=== PATIENT | male | born 1995 | race Caucasian/White ===

== ENCOUNTER 2021-04-23 22:04 | Emergency (ER) | payer BC, OTHER ==
--- NOTE | 2021-04-23 23:06 | ED ---
General Adult HPI - General Chief complaint: Recheck/Abnormal Lab/Rx Stated complaint: Cellulitis on face Time Seen by Provider: 04/23/21 22:28 Source: patient Mode of arrival: ambulatory Limitations: no limitations - History of Present Illness Initial comments: This patient is a 25 year old man who presents because she is having an increase in right maxillary area pain. The patient states that she has had a dental infection that is been ongoing for almost couple of weeks. Patient had been admitted at [facility] from April 14 April 19 for antibiotics. Patient was subsequently taking Augmentin. The patient notes that there seems to been a little bit of increase in the discomfort to his right maxillary area. He has not noted fevers today. He is not having drainage from the drainage site. No change in his vision. No orbital pain. -: days(s) Location: face Radiation: non-radiation Quality: aching Consistency: constant Improves with: none Worsens with: none Associated Symptoms: denies other symptoms Treatments Prior to Arrival: none - Related Data Previous Rx's Medication Instructions Recorded Hydrocodone/Acetaminophen [[place] 1 each PO Q6HR PRN #10 tab 06/27/16 5-325] HYDROcodone/APAP 7.5-325MG [[place] 1 tab PO Q6HR PRN 3 Days #12 tab 04/24/21 7.5-325] Pseudoephedrine 12Hr [Sudafed 12 120 mg PO Q12H #14 tablet.er 04/24/21 Hour] Allergies Allergy/AdvReac Type Severity Reaction Status Date / Time No Known Allergies Allergy Verified 06/17/16 00:48 Review of Systems ROS Statement: Those systems with pertinent positive or pertinent negative responses have been documented in the HPI. ROS Other: All systems not noted in ROS Statement are negative. Constitutional: Denies: fever, chills Eyes: Denies: eye pain, eye discharge, vision change ENT: Reports: dental pain, other (Maxillary area facial pain). Denies: ear pain, throat pain, hearing loss, epistaxis, congestion Respiratory: Denies: cough, dyspnea Cardiovascular: Denies: chest pain, palpitations Gastrointestinal: Denies: nausea, vomiting Skin: Denies: rash Neurological: Denies: headache, weakness Past Medical History Past Medical History: No Reported History History of Any Multi-Drug Resistant Organisms: None Reported Past Surgical History: Orthopedic Surgery Additional Past Surgical History / Comment(s): LEFT WRIST CUT NERVE Past Psychological History: Depression Smoking Status: Former smoker Past Alcohol Use History: Daily Past Drug Use History: Marijuana General Exam Limitations: no limitations General appearance: alert, in no apparent distress Head exam: Present: atraumatic, normocephalic Eye exam: Present: normal appearance, PERRL, EOMI, other (No pain with extraocular movement). Absent: scleral icterus, conjunctival injection, nystagmus, periorbital swelling, periorbital tenderness ENT exam: Present: mucous membranes moist, TM's normal bilaterally, normal external ear exam, other (There is swelling overlying the hard palate with an open I&D site. It does appear to have a healing appearance, no erythema or warmth. No area of fluctuance. No new abscess apparent. Dental caries). Abs ent: normal oropharynx Neck exam: Present: normal inspection, full ROM, lymphadenopathy. Absent: tenderness, meningismus Respiratory exam: Present: normal lung sounds bilaterally. Absent: respiratory distress, wheezes, rales, rhonchi, stridor Cardiovascular Exam: Present: regular rate, normal rhythm, normal heart sounds. Absent: systolic murmur, diastolic murmur, rubs, gallop Neurological exam: Present: alert Skin exam: Present: warm, dry, intact, normal color. Absent: rash Medical Decision Making - Lab Data Result diagrams: 04/23/21 23:21 04/23/21 23:21 Lab Results 04/23/21 04/23/21 Range/Units 23:21 23:21 WBC 8.2 (3.8-10.6) k/uL RBC 4.74 (4.30-5.90) m/uL Hgb 14.9 (13.0-17.5) gm/dL Hct 42.4 (39.0-53.0) % MCV 89.5 (80.0-100.0) fL MCH 31.3 (25.0-35.0) pg MCHC 35.0 (31.0-37.0) g/dL RDW 12.1 (11.5-15.5) % Plt Count 217 (150-450) k/uL MPV 8.6 Neutrophils % 60 % Lymphocytes % 26 % Monocytes % 5 % Eosinophils % 6 % Basophils % 1 % Neutrophils # 4.9 (1.3-7.7) k/uL Lymphocytes # 2.2 (1.0-4.8) k/uL Monocytes # 0.4 (0-1.0) k/uL Eosinophils # 0.5 (0-0.7) k/uL Basophils # 0.1 (0-0.2) k/uL ESR 9 (0-15) mm/hr Sodium 139 (137-145) mmol/L Potassium 3.8 (3.5-5.1) mmol/L Chloride 103 (98-107) mmol/L Carbon Dioxide 28 (22-30) mmol/L Anion Gap 8 mmol/L BUN 12 (9-20) mg/dL Creatinine 0.64 L (0.66-1.25) mg/dL Est GFR (CKD-EPI)AfAm >90 (>60 ml/min/1.73 sqM) Est GFR (CKD-EPI)NonAf >90 (>60 ml/min/1.73 sqM) Glucose 102 H (74-99) mg/dL Calcium 10.2 (8.4-10.2) mg/dL Disposition Clinical Impression: Cellulitis Disposition: HOME SELF-CARE Condition: Good Instructions (If sedation given, give patient instructions): Cellulitis (ED) Prescriptions: HYDROcodone/APAP 7.5-325MG [[place] 7.5-325] 1 tab PO Q6HR PRN 3 Days #12 tab PRN Reason: Pain Pseudoephedrine 12Hr [Sudafed 12 Hour] 120 mg PO Q12H #14 tablet.er Is patient prescribed a controlled substance at d/c from ED?: Yes When asked, does pt state using other controlled substances?: No If prescribed controlled substance>3 days was MAPS reviewed?: Prescribed <3 Days If opioid is for acute pain is fill amount 7 days or less?: Yes If Rx opioid, was Start Talking consent form obtained?: Yes Referrals: None,Stated [Primary Care Provider] - 1-2 days
[2021-04-23 23:32] LABS: Basophils # (A) 0.1 k/uL (0-0.2); Basophils % (A) 1 %; Eosinophils # (A) 0.5 k/uL (0-0.7); Eosinophils % (A) 6 %; HCT 42.4 % (39.0-53.0); HGB 14.9 gm/dL (13.0-17.5); Lymphocytes # (A) 2.2 k/uL (1.0-4.8); Lymphocytes % (A) 26 %; MCH 31.3 pg (25.0-35.0); MCV 89.5 fL (80.0-100.0); Mean Platelet Volume 8.6; Monocytes # (A) 0.4 k/uL (0-1.0); Monocytes % (A) 5 %; Neutrophils # (A) 4.9 k/uL (1.3-7.7); Neutrophils % (A) 60 %; Platelet Count 217 k/uL (150-450); RBC 4.74 m/uL (4.30-5.90); RDW 12.1 % (11.5-15.5); WBC 8.2 k/uL (3.8-10.6)
[2021-04-23] MEDS ORDERED: HYDROcodone/APAP 10-325MG 1 EACH TAB PO ONE (23:32)
[2021-04-23 23:46] LABS: African American GFR (CKD) >90 (>60 ml/min/1.73 sqM); Anion Gap 8 mmol/L; Blood Urea Nitrogen 12 mg/dL (9-20); Calcium 10.2 mg/dL (8.4-10.2); Carbon Dioxide 28 mmol/L (22-30); Chloride 103 mmol/L (98-107); Glucose 102 mg/dL (74-99); Non-African American GFR(CKD) >90 (>60 ml/min/1.73 sqM); Potassium 3.8 mmol/L (3.5-5.1); Sodium 139 mmol/L (137-145)
--- NOTE | 2021-04-24 00:07 | CT ---
EXAMINATION TYPE: CT facial bones w con DATE OF EXAM: 04/23/2021 COMPARISON: None HISTORY: Rt Maxillary Infection Pain CT DLP: 428.90 mGycm Automated exposure control for dose reduction was used. CONTRAST: Performed with IV Contrast, patient injected with 100 mL of Isovue 300. Images obtained from the bottom of the mandible to the top of the frontal sinuses with IV contrast. There is mucosal thickening in the posterior maxillary sinuses. There is moderate cortical thickening in the ethmoid and frontal sinuses. Sphenoid sinuses show minimal mucosal thickening. There is no ev idence of orbital mass. There is no evidence of a blowout fracture. Orbital margins are intact. The m axilla is intact. The nasal bone is intact. Zygomatic arches appear normal. The mandibular ring appea rs intact. Temporomandibular joints appear normal. I see no pathologic enhancement. There is some sub cutaneous edema anterior to the maxilla. There are some upper missing teeth on the right side. IMPRESSION: Subcutaneous edema anterior to the maxilla suggestive of cellulitis. There is pansinusitis.
[2021-04-24 00:57] LABS: Erythrocyte Sedimentation Rate 9 mm/hr (0-15)
== END 2021-04-24 01:48 | disposition home or self-care (01) ==
LOC: EC 22:04
DX: L03.211 Cellulitis of face (principal); Z87.891 Personal history of nicotine dependence
CPT/HCPCS: 36415; 80048; 85652; 85025; 87040; 70487; 99284; Q9967

== ENCOUNTER 2022-10-19 23:46 | Emergency (ER) | payer OTHER ==
[2022-10-19 23:50] VITALS: BP 129/65; PULSE 62; RESP 16; TEMP 98.6
[2022-10-20] MEDS ORDERED: KETOROLAC 15 MG/ML 1 ML VIAL IM STA
[2022-10-20] MEDS ORDERED: ACET/COD 300 MG/30 MG STARTER PACK 6 TAB BTL PO STA (00:02)
--- NOTE | 2022-10-20 00:02 | ED ---
ENT HPI - General Chief complaint: Dental/Oral Stated complaint: Dental Pain, Abscess Tooth Time Seen by Provider: 10/19/22 23:54 Source: patient Mode of arrival: ambulatory - History of Present Illness Initial comments: Patient is a 18-year-old male presenting with chief complaint of dental pain. Patient states that he has had worsening dental pain over the last day. He has known dental caries to the right lower side which is where the pain is located. Patient states that he has had previous severe dental abscesses prior to that required hospitalization, he was trying to be prompt in handling this issue. No trismus, difficulty swallowing, difficulty breathing, chest pain, fever, chills, neck pain, headache, vision or hearing changes, drooling, voice changes, nausea, vomiting. - Related Data Previous Rx's Medication Instructions Recorded Hydrocodone/Acetaminophen [[place] 1 each PO Q6HR PRN #10 tab 06/27/16 5-325] HYDROcodone/APAP 7.5-325MG [[place] 1 tab PO Q6HR PRN 3 Days #12 tab 04/24/21 7.5-325] Pseudoephedrine 12Hr [Sudafed 12 120 mg PO Q12H #14 tablet.er 04/24/21 Hour] Amoxic-Pot Clav 875-125Mg 1 tab PO Q12HR 7 Days #14 tab 10/20/22 [Augmentin 875-125] Allergies Allergy/AdvReac Type Severity Reaction Status Date / Time No Known Allergies Allergy Verified 10/19/22 23:50 Review of Systems ROS Statement: Those systems with pertinent positive or pertinent negative responses have been documented in the HPI. ROS Other: All systems not noted in ROS Statement are negative. Past Medical History Past Medical History: No Reported History History of Any Multi-Drug Resistant Organisms: None Reported Past Surgical History: Orthopedic Surgery Additional Past Surgical History / Comment(s): LEFT WRIST CUT NERVE Past Psychological History: Depression Smoking Status: Former smoker Past Alcohol Use History: Daily Past Drug Use History: Marijuana General Exam Limitations: no limitations General appearance: alert, in no apparent distress Head exam: Present: atraumatic, normocephalic, normal inspection Eye exam: Present: normal appearance Expanded Mouth exam: Present: tongue normal. Absent: drooling, trismus, muffled voice Teeth exam: Present: dental caries, fractured tooth #, dental tenderness #, gingival enlargement Neck exam: Present: normal inspection Neurological exam: Present: alert, oriented X3, CN II-XII intact Psychiatric exam: Present: normal affect, normal mood Skin exam: Present: warm, dry, intact, normal color. Absent: rash Course Vital Signs 10/19/22 23:48 Temperature 98.6 F Pulse Rate 62 Respiratory 16 Rate Blood Pressure 129/65 O2 Sat by Pulse 97 Oximetry Medical Decision Making - Medical Decision Making Patient is a 18-year-old male presenting with chief complaint of dental pain. On physical examination patient has dental caries and fractured tooth noticed on the right lower side with the pain is localized. No trismus, no brawny induration, no difficulty swallowing or breathing, normal posterior pharynx. Patient will be treated for abscess with Augmentin and provided with pain medication. Follow-up with PCP. Report back to ER with any new or worsening symptoms. Discussed return parameters and answered all questions. Patient conveyed verbal understanding and agreed to the plan. I discussed this case in detail with my attending Dr. Avila Disposition Clinical Impression: Dental abscess Disposition: HOME SELF-CARE Condition: Good Instructions (If sedation given, give patient instructions): Dental Abscess (ED) Additional Instructions: Follow-up with dentist. Report back to ER with any new or worsening symptoms. Take medication as prescribed. Take Motrin or Aleve as needed for pain. Please follow up with the [facility] dental clinic. [facility] [place] [place] [address]. Phone number for new patients or [phone] for existing patients. Prescriptions: Amoxic-Pot Clav 875-125Mg [Augmentin 875-125] 1 tab PO Q12HR 7 Days #14 tab Is patient prescribed a controlled substance at d/c from ED?: No Referrals: None,Stated [Primary Care Provider] - 1-2 days Time of Disposition: 00:02
== END 2022-10-20 00:17 | disposition home or self-care (01) ==
LOC: EC 23:46
DX: K04.7 Periapical abscess without sinus (principal); F32.A Depression, unspecified; F12.90 Cannabis use, unspecified, uncomplicated; Z87.891 Personal history of nicotine dependence
CPT/HCPCS: 99283; 96372; J1885

== ENCOUNTER 2024-06-11 22:52 | Emergency (ER) | payer OTHER ==
[~2024-06-11 22:52] MED LIST: SODIUM CHLORIDE 0.9% 1,000 ML BAG ONE
[2024-06-12] MEDS ORDERED: diphenhydrAMINE 50 MG/ML 1 ML VIAL ONE (00:56)
[2024-06-12] MEDS ORDERED: methylPREDNISolone SOD SUCCI 125 MG/2 ML VIAL ONE (00:57)
[2024-06-12] MEDS ORDERED: FAMOTIDINE 20 MG/2 ML VIAL ONE (00:57)
== END 2024-06-12 02:45 | disposition home or self-care (01) ==
LOC: EC 22:52
DX: T78.40XA Allergy, unspecified, initial encounter (principal)
CPT/HCPCS: 96361; 96374; 96375; 99282